=== PATIENT | male | born 1995 | race Caucasian/White ===

== ENCOUNTER 2022-07-15 06:48 | Emergency (ER) | payer MEDICAID ==
[~2022-07-15] VITALS: Ht 188 cm; Wt 90.7 kg
[2022-07-15 07:18] VITALS: BP 132/76
--- NOTE | 2022-07-15 07:18 | NUR ---
[place] C/O WOUND CHECK, SCABS TO BILATERAL HANDS. PRESCRIBED BACITRACIN & DOXYCYCLINE 07/09/22 AT [facility]. DID NOT START MEDS. TOLERATING R/A WELL WITH NO RESP DISTRESS. RR EVEN AND NONLABORED. AMBULATORY WITH STEADY GAIT.
[2022-07-15] MEDS ORDERED: BACI/NEOM/POLY B OINT PKT 1 UDPKT PACKET TP ONE (07:30)
--- NOTE | 2022-07-15 07:46 | NUR ---
SEEN BY DR INFANTE.PROVIDED W WOUND CARE/DRESSING. D/C IN STABLE CONDITION.
== END 2022-07-15 07:47 | disposition home or self-care (01) ==
LOC: ER 06:52
DX: S60.511A Abrasion of right hand, initial encounter (principal); Z59.00 Homelessness unspecified; W50.4XXA Accidental scratch by another person, initial encounter; Y93.89 Activity, other specified; Y92.89 Other specified places as the place of occurrence of the external cause; Y99.8 Other external cause status

== ENCOUNTER 2022-12-25 22:17 | Emergency (ER) | payer OTHER ==
[~2022-12-25] VITALS: Ht 188 cm; Wt 90.7 kg
[2022-12-25 22:32] VITALS: BP 137/89
--- NOTE | 2022-12-25 22:41 | NUR ---
Patient discharged to home in stable condition. Written and verbal after care instructions given. Patient verbalizes understanding of instruction. Patient in need of motivational discharge, getting violent with staff and security. had to be escorted out.
== END 2022-12-25 22:42 | disposition home or self-care (01) ==
LOC: ER 22:20
DX: Z00.00 Encounter for general adult medical examination without abnormal findings (principal); F17.200 Nicotine dependence, unspecified, uncomplicated; Z59.00 Homelessness unspecified

== ENCOUNTER 2024-12-13 05:04 | Emergency (ER) | payer OTHER ==
[2024-12-13] MEDS ORDERED: AMOX-430 PO (06:09)
== END 2024-12-13 06:18 | disposition home or self-care (01) ==
LOC: ER 05:06
DX: K02.9 Dental caries, unspecified (principal); F17.200 Nicotine dependence, unspecified, uncomplicated; Z59.00 Homelessness unspecified